=== PATIENT | male | born 1970 | race Hispanic/Latino ===

== ENCOUNTER 2018-09-21 18:07 | Emergency (ER) | payer SELFPAY ==
--- NOTE | 2018-09-21 19:41 | RAD REPORT ---
EXAM DESCRIPTION: RAD - C Spine Ap/Lat - 09/21/2018 7:28 pm CLINICAL HISTORY: Neck pain status post injury FINDINGS: The alignment of the cervical spine is satisfactory. No fracture or dislocation is seen. Mild spondylosis involves mid and distal cervical spine
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
[2018-09-21 20:11] VITALS: O2SAT 97
[2018-09-21 20:12] VITALS: BP 120/91; TEMP 98.1
== END 2018-09-21 20:05 | disposition home or self-care (01) ==
LOC: ER 18:07
DX: S13.4XXA Sprain of ligaments of cervical spine, initial encounter (principal); V59.50XA Passenger in pick-up truck or van injured in collision with unspecified motor vehicles in traffic accident, initial encounter
CPT/HCPCS: 72040; 99283